=== PATIENT | male | born 1990 | race African-American/Black ===

== ENCOUNTER 2017-01-27 13:28 | Emergency (ER) | payer OTHER ==
[~2017-01-27] VITALS: Ht 182.9 cm; Wt 97.5 kg
[2017-01-27 13:44] VITALS: BP 120/73
[2017-01-27] MEDS ORDERED: ZYRT10CA PO (13:45)
[2017-01-27] MEDS ORDERED: ONDANSETRON 4MG/2ML VIAL (J2405) IV ONE (14:15)
[2017-01-27] MEDS ORDERED: NS 1,000 ML IV ONE (14:15)
[2017-01-27] MEDS ORDERED: FAMOTIDINE IV BAG 20 MG in APPROPRIATE DILUENT 1 EA IV ONE (14:15)
[2017-01-27] MEDS ORDERED: GI COCKTAIL 50ML BTL(HYOSCYAMINE/MAALOX/LIDOCAINE VISCOUS)(1:3:1) PO ONE (14:45)
[2017-01-27] MEDS ORDERED: ACETAMINOPHEN TAB 650MG DOSE (2X325MG) PO ONE (14:45)
[2017-01-27 14:59] LABS: BASO % 0.1 % (0.0-1.0); EOS # 0.1 K/mm3 (0.0-0.50); EOS % 2.2 % (0.0-3.0); LARGE UNSTAINED CELL % 0.6 % (0.0-4.0); LYMPH # 0.3 K/mm3 (1.5-6.5); LYMPH % 5.6 % (24.0-44.0); MEAN CORPUSCULAR HEMOGLOBIN 30.3 pg (27.0-33.0); MEAN CORPUSCULAR HGB CONC 32.9 g/dl (32.0-36.5); MEAN CORPUSCULAR VOLUME 92.2 fl (80.0-96.0); MONO # 0.3 K/mm3 (0.0-0.8); MONO % 5.4 % (0.0-5.0); NEUTROPHILS # 4.8 K/mm3 (1.8-7.7); NEUTROPHILS % 86.1 % (36.0-66.0); PLATELET COUNT, AUTOMATED 199 k/mm3 (150-450); RED CELL DISTRIBUTION WIDTH 11.4 % (11.5-14.5); WHITE BLOOD COUNT 5.6 K/mm3 (4.0-10.0)
[2017-01-27 15:15] LABS: ALBUMIN 3.8 GM/DL (3.2-5.2); ALBUMIN/GLOBULIN RATIO 1.31 (1.00-1.93); ALKALINE PHOSPHATASE 78 U/L (45-117); ALT/SGPT 12 U/L (12-78); ANION GAP 8 MEQ/L (8-16); AST/SGOT 19 U/L (15-37); BILIRUBIN,DIRECT 0.3 MG/DL (0.0-0.2); BILIRUBIN,TOTAL 1.5 MG/DL (0.2-1.0); BLOOD UREA NITROGEN 13 MG/DL (7-18); CALCIUM LEVEL 8.3 MG/DL (8.5-10.1); CARBON DIOXIDE LEVEL 27 MEQ/L (21-32); CHLORIDE LEVEL 108 MEQ/L (98-107); GLOMERULAR FILTRATION RATE > 60.0 (>60); GLUCOSE, FASTING 66 MG/DL (70-105); POTASSIUM SERUM 3.9 MEQ/L (3.5-5.1); SODIUM LEVEL 143 MEQ/L (136-145); TOTAL PROTEIN 6.7 GM/DL (6.4-8.2)
--- NOTE | 2017-01-27 16:42 | REP ---
PORTABLE CHEST: REASON: Chest pain. COMPARISON: None. FINDINGS: The technique utilized in obtaining the radiograph has magnified the cardiac silhouette and accentuated the interstitial markings. The superior mediastinal structures are midline. The cardiac silhouette is unremarkable in size, shape, and position. The diaphragmatic surfaces of the lungs are regular, and the costophrenic angles are clear. The pulmonary duke are clear. The imaged osseous structures are intact. IMPRESSION: There is no acute cardiopulmonary disease. Signed by Saurabh Rico DO 01/28/2017 09:24 A
[2017-01-27] MEDS ORDERED: KETOROLAC 30 MG/ML VIAL (J1885) IV ONE (16:45)
--- NOTE | 2017-01-28 08:20 | ECGEPIP ---
Stationary ECG Study [facility] - ED Test Date: 2017-01-27 Pat Name: KELVIN CUNNINGHAM Department: Room: - Gender: M Food Science Technician: JT : 1990 Requested By: OLIVE Cavanaugh Order Number: [id number] Reading MD: Raji Carter Measurements Intervals [place] Rate: 80 P: 65 CT: 156 QRS: 48 QRSD: 95 T: 49 QT: 350 QTc: 404 Interpretive Statements SINUS RHYTHM EARLY REPOLARIZATION NO PRIORS Electronically Signed On 01-28-2017 8:20:44 EDT by Raji Carter
== END 2017-01-27 17:39 | disposition home or self-care (01) ==
LOC: M ED 13:46
DX: R19.7 Diarrhea, unspecified (principal); R10.13 Epigastric pain; K21.9 Gastro-esophageal reflux disease without esophagitis; M54.9 Dorsalgia, unspecified; Z79.899 Other long term (current) drug therapy
CPT/HCPCS: 71010; 80048; 80076; 83605; 83690; 85025; 87804; 87880; 93005; 93041; 96374; 96375; 99284; J1885; J2405

== ENCOUNTER 2017-07-12 11:05 | Inpatient (IN) | payer OTHER ==
[~2017-07-12] VITALS: Ht 182.9 cm; Wt 104.3 kg
[~2017-07-12 11:05] MED LIST: ZYRT10CA PO
[2017-07-12] MEDS ORDERED: COLA100C5 PO (11:17)
[2017-07-12] MEDS ORDERED: NAPR250T4 PO (11:17)
[2017-07-12] MEDS ORDERED: OXYC1TAB23 PO (11:17)
[2017-07-12 12:00] LABS: MEAN CORPUSCULAR HEMOGLOBIN 29.4 pg (27.0-33.0); MEAN CORPUSCULAR HGB CONC 32.1 g/dl (32.0-36.5); MEAN CORPUSCULAR VOLUME 91.6 fl (80.0-96.0); RED CELL DISTRIBUTION WIDTH 11.4 % (11.5-14.5); WHITE BLOOD COUNT 5.4 K/mm3 (4.0-10.0)
[2017-07-12 12:22] LABS: METHADONE URINE NEGATIVE (NEGATIVE)
[2017-07-12 12:45] LABS: ALBUMIN 4.4 GM/DL (3.2-5.2); ALBUMIN/GLOBULIN RATIO 1.29 (1.00-1.93); ALKALINE PHOSPHATASE 103 U/L (45-117); ALT/SGPT 104 U/L (12-78); ANION GAP 8 MEQ/L (8-16); AST/SGOT 41 U/L (15-37); BILIRUBIN,DIRECT 0.2 MG/DL (0.0-0.2); BLOOD UREA NITROGEN 9 MG/DL (7-18); CALCIUM LEVEL 8.4 MG/DL (8.5-10.1); CARBON DIOXIDE LEVEL 30 MEQ/L (21-32); CHLORIDE LEVEL 105 MEQ/L (98-107); CREATININE FOR GFR 0.98 MG/DL (0.70-1.30); GLOMERULAR FILTRATION RATE > 60.0 (>60); GLUCOSE, FASTING 84 MG/DL (70-105); POTASSIUM SERUM 4.1 MEQ/L (3.5-5.1); SODIUM LEVEL 143 MEQ/L (136-145); TOTAL PROTEIN 7.8 GM/DL (6.4-8.2)
[2017-07-12] MEDS ORDERED: CETI10TA PO (17:05)
[2017-07-12 18:07] VITALS: BP 136/64
[2017-07-12] MEDS ORDERED: MAALOX 30 ML SUSP *UDC PO PRN (18:45)
[2017-07-12] MEDS ORDERED: MOM 30ML SUSPENSION UDC PO PRN (18:45)
[2017-07-12] MEDS ORDERED: hydrOXYzine 50 MG TAB PO PRN (18:45)
[2017-07-12] MEDS ORDERED: traZODone 50 MG TAB PO PRN (18:45)
[2017-07-12] MEDS: NAPROXEN 250 MG TAB PO SCH (20:36)
[2017-07-12] MEDS: CETIRIZINE (ZyrTEC) 10 MG TAB PO SCH (20:36)
[2017-07-12] MEDS: SERTRALINE HCL 50 MG TAB PO SCH (20:37)
--- NOTE | 2017-07-12 22:13 | HPE ---
DATE OF ADMISSION: 07/12/2017 Please refer to the psychiatric history and evaluation for further details on this admission. This examination and history is intended for medical issues which may need treatment, followup, or consult on this 27-year-old male. ALLERGIES: PENICILLIN. PRIMARY CARE PROVIDER: [facility]. 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 He is . His is also active duty and is currently stationed in [place]. Ethyl alcohol (EtOH): Once a month. Smokes recently one or two cigarettes a day. Recreational drug use: None. PAST MEDICAL HISTORY: Negative. PAST SURGICAL HISTORY: 1. Left knee surgery 2 weeks ago, he is currently going to physical therapy. 2. Tonsillectomy. FAMILY HISTORY: Noncontributory. LABORATORY STUDIES: WBC 5.4, hemoglobin 14.5, hematocrit 35.3, platelets 300, electrolytes normal, BUN and creatinine 9 and 0.98, calcium 8.4, AST and ALT are elevated at 41 and 104, will recheck in the morning. EtOH was 0.019. HOME MEDICATIONS: - cetirizine 10 mg by mouth nightly - Colace 100 mg by mouth three times a day - naproxen 250 mg by mouth twice a day - oxycodone/acetaminophen 5/325 one by mouth every 6 hours as needed for pain REVIEW OF SYSTEMS: Ten systems review was done. Other than knee pain, was unremarkable. OBJECTIVE: 27-year-old cooperative male in no acute distress. Height 72 inches, weight 104 kg, body mass index (BMI) 31.2. Blood pressure 130/76, pulse 66, respirations 16, temperature 98.6. Patient is alert and oriented times three. Pupils equal and reactive to light. Extraocular movements are intact. Cornea and sclerae clear. Conjunctivae is normal. No facial asymmetry. Pharynx, tongue, gums pink and moist. Tongue is midline. NECK: Supple without lymphadenopathy. No thyromegaly. No goiter. Carotids 2+ without bruit. CHEST: Clear to auscultation without wheeze or retraction. HEART: Regular. ABDOMEN: Benign. Bowel sounds positive. GENITOURINARY/RECTAL: Not done. EXTREMITIES: Show full range of motion. Left knee incision with Steri-Strips, no open areas, no redness, knee is slightly swollen, does have full flexion and extension. The rest of his extremities are without cyanosis, clubbing, or edema. Peripheral pulses equal and palpable bilaterally. SKIN: Warm and dry. IMPRESSION/PLAN: 1. Psychiatric plan per psychiatry. 2. Status post left knee surgery. Monitor for infection. Continue with physical therapy upon discharge. No other acute medical issues.
[2017-07-13 06:00] VITALS: BP 115/68
[2017-07-13 07:27] LABS: ALBUMIN/GLOBULIN RATIO 1.21 (1.00-1.93); BILIRUBIN,DIRECT 0.3 MG/DL (0.0-0.2); BILIRUBIN,TOTAL 1.2 MG/DL (0.2-1.0); TOTAL PROTEIN 7.3 GM/DL (6.4-8.2)
[2017-07-13] MEDS: DOCUSATE SODIUM 100 MG CAP PO SCH (08:43)
[2017-07-13] MEDS: NAPROXEN 250 MG TAB PO SCH ×2 (08:43→20:30)
[2017-07-13] MEDS: SERTRALINE HCL 50 MG TAB PO SCH (08:43)
--- NOTE | 2017-07-13 16:35 | MHHPEPDOC ---
[facility] History & Physical History and Physical DATE OF ADMISSION: Jul 12, 2017 at 16:24 LEGAL STATUS AT ADMISSION: 9.39 CHIEF COMPLAINT: "I made statements that my thought I was going to kill myself, but I never was going to" HISTORY OF THE PRESENT ILLNESS: Patient is a 27-year-old male, who was admitted after making statements to his that he was going to somehow harm himself. The patient indicates that he was never feeling suicidal and made the statements rashly due to a combination of anger, depression, and fatigue. Patient has been for approximately one year and his has been deployed since February 2017, he says this has put a strain on their relationship but it is something he is working on coping with. He also has an upcoming deployment that he is somewhat nervous about as he had never been previously deployed. He also reports feeling some depression due to ongoing physical limitations from a knee repair surgery that occurred 2 weeks ago, after which he has felt that his healing has not been as fast as it should have been. Finally, the patient admits to stressor of June being the anniversary of his grandfather's 6 years ago and states this time of year is always difficult for him. He states that recently he has been sitting around and stewing in his thoughts, becoming increasingly despondent due to his inability to heal faster and because his communication with his has not been the best. Patient reports that he was not actively contemplating suicide and instead made rash statements via text to his who then [place] the patient. Patient believes that he would do well with therapy to help address the issues he has been having and is interested in seeking help to deal with his grief over his grandfather's . He finds the loss of his grandfather to be particularly troublesome as his grandfather took the place of his father throughout much of his life due to his father's work schedule. Patient identifies that he lost a guide when his grandfather and has had difficulty with "progression" in several jobs since then which was why he took the job in the [employer]. 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 PSYCHIATRIC REVIEW OF SYSTEMS: Affective: depressed mood, difficulty sleeping, some loss of appetite, low self- esteem; NO suicidal thoughts, anhedonia, or difficulty concentrating Anxiety: denies symptoms of anxiety Trauma: loss of grandfather and guilt over not having been there during his wasting away from cancer; at times consumed with thoughts that he did not show his grandfather enough love because of this Psychosis: denies AVH; denies paranoia or delusional thoughts PAST PSYCHIATRIC HISTORY: Prior Psychiatric Disorder: denies. Outpatient Treatment: denies Suicidal/Self injurious: denies Psychotropic Medication History: none ALLERGIES: Please see below. 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 Economic: no concerns Supports: mother; cousins; Abuse/trauma: denies SUBSTANCE ABUSE HISTORY: denies abuse of alcohol, nicotine, or illicit drugs PAST MEDICAL/SURGICAL HISTORY: tonsillectomy; knee repair Vital Signs Date Time Temp Pulse Resp B/P (MAP) Pulse Ox O2 Delivery O2 Flow Rate FiO2 07/13/17 06:00 98.7 69 19 115/68 (84) Room Air 07/12/17 18:07 98.6 66 16 136/64 (88) 98 Room Air 07/12/17 17:02 99.0 61 16 130/76 (94) 99 Room Air MENTAL STATUS EXAMINATION: General appearance: Patient is a 27-year old male, who is dressed in [facility]; good hygiene, good eye contact, calm and cooperative Speech: fluent; normal volume and tone Thought processes: logical, linear, goal-directed Thought content: denies SI/HI; ruminations on his relationship with his grandfather Abstract reasoning and computation: intact Description of associations: intact Description of abnormal or psychotic thoughts: no evidence of internal stimuli; no paranoid or delusional thoughts elicited Judgment: good Insight: good Orientation: x3 Recent and remote memory: intact Attention span and concentration: intact Mood: "not great" Affect: depressed; blunted range, congruent to stated mood and thought content DIAGNOSES: Major Depressive Disorder 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 Given that this is his first admission he will require monitoring to see how he responds and if his story changes as he spends some time in reflection. Patient does not appear to be an active danger to himself or others but with the acute nature of his crisis and ongoing stressors he remains at elevated risk of suicide. He is interested in seeking help and has plans to attend the groups to help himself develop coping skills. At this time the patient would benefit from inpatient admission for stabilization and to watch for medication side effects. PROBLEM LIST: 1. depressed mood 2. ineffective coping skills 3. risk for suicide INITIAL TREATMENT PLAN: 1. Patient was admitted on a 9.39 2. Complete history was obtained. 3. With patients permission, family will be contacted and database will be expanded. 4. Patients medication regimen will be reviewed and changed accordingly. 5. Patient will be provided with protected environment. 6. Patient will be treated with individual, group, and milieu therapies. 7. Patient will receive supportive psych-education. 8. Discharge planning will commence immediately. 9. Outpatient follow-up treatment will be strongly recommended. 10. The initial treatment plan will focus initially on: * Depression. * Risk for suicide. * Managing bereavement ESTIMATED LENGTH OF STAY: 3-5 DAYS. TIME SPENT COUNSELING AND COORDINATING INITIAL CARE: 60 minutes. Laboratory Data 24[facility] Labs Laboratory Tests 2 07/13/17 06:46: Aspartate Amino Transf (AST/SGOT) 29, Alanine Aminotransferase (ALT/SGPT) 82H, Alkaline Phosphatase 100, Total Bilirubin 1.2H, Direct Bilirubin 0.3H, Total Protein 7.3, Albumin 4.0, Albumin/Globulin Ratio 1.21 Medications Scheduled Cetirizine HCl (Cetirizine HCl) 10 Mg Tab, 10 MG PO QHS, (Reported) Docusate Sodium (Colace) 100 Mg Cap, 100 MG PO TID, (Reported) Naproxen (Naproxen) 250 Mg Tab, 250 MG PO BID, (Reported) Scheduled PRN Oxycodone/Acetaminophen (Oxycodone/Acetaminophen 5-325 mg) 1 Tab Tab, 1 TAB PO Q6H PRN for PAIN, (Reported) Allergies Coded Allergies: Penicillins (Verified Allergy, Unknown, 07/12/17) DILAN MALHOTRA MD Jul 13, 2017 16:35
[2017-07-13 18:00] VITALS: BP 125/70
[2017-07-13] MEDS: CETIRIZINE (ZyrTEC) 10 MG TAB PO SCH (20:30)
[2017-07-14 07:13] VITALS: BP 131/71
[2017-07-14 07:43] LABS: ALBUMIN 4.2 GM/DL (3.2-5.2); ALBUMIN/GLOBULIN RATIO 1.24 (1.00-1.93); ALKALINE PHOSPHATASE 102 U/L (45-117); ALT/SGPT 71 U/L (12-78); ANION GAP 7 MEQ/L (8-16); AST/SGOT 29 U/L (15-37); BILIRUBIN,TOTAL 1.3 MG/DL (0.2-1.0); BLOOD UREA NITROGEN 14 MG/DL (7-18); CALCIUM LEVEL 9.6 MG/DL (8.5-10.1); CARBON DIOXIDE LEVEL 29 MEQ/L (21-32); CHLORIDE LEVEL 105 MEQ/L (98-107); CREATININE FOR GFR 1.05 MG/DL (0.70-1.30); GLOMERULAR FILTRATION RATE > 60.0 (>60); GLUCOSE, FASTING 92 MG/DL (70-105); SODIUM LEVEL 141 MEQ/L (136-145); TOTAL PROTEIN 7.6 GM/DL (6.4-8.2)
[2017-07-14] MEDS: DOCUSATE SODIUM 100 MG CAP PO SCH (07:59)
[2017-07-14] MEDS: SERTRALINE HCL 50 MG TAB PO SCH (07:59)
[2017-07-14] MEDS: NAPROXEN 250 MG TAB PO SCH ×2 (07:59→20:55)
--- NOTE | 2017-07-14 16:29 | MHIPNPDOC ---
[facility] Progress Note Progress Note DATE OF SERVICE: 07/14/17 HISTORY: Patient slept well overnight, reports that he feels better. Has been attending groups and talking with friends/family, this has led to the realization that the patient was isolating which he feels was contributing to his negative mood and his outburst that occurred while talking to his . He opened up more about his feelings regarding his and states that he gets jealous because he knows that other men will flirt with his , this jealousy is in spite of his statement that he trusts her implicitly. Patient also states that he is interested in speaking with Behavioral Health once he is discharged back to [facility] to help him with maintenance of coping skills. VITAL SIGNS: See below. NEW TEST RESULTS: see below CURRENT MEDICATIONS: See below. MENTAL STATUS EXAMINATION: Patient is a 27-year old male, who is dressed in [facility]; calm and cooperative with interview, good eye contact, good hygiene/grooming Speech: Is fluent; normal volume and tone Thought processes including: logical, linear, goal-directed Thought content: denies SI/HI; mild perseveration on the idea of "progression" in his career/schooling/treatment on the unit. Abstract reasoning, and computation: intact. Description of associations: intact Description of abnormal or psychotic thoughts: no evidence of internal stimuli; no paranoid or delusional thoughts elicited Judgment: good Insight: good Orientation: x3 Recent and remote memory: intact Attention span and concentration: intact Mood: "ready". Affect: earnest, full range, congruent to stated mood and thoughts DIAGNOSES: MDD vs. Adjustment Disorder with depressed mood ASSESSMENT: Patient has passed his initial crisis, is interested in developing skills to prevent him from reaching such a point in the future. Interacting well on the unit and no reports of behavioral issues. He appears to be highly motivated to improve his coping skills and return to his usual life. There are no acute safety concerns at this time and the patient would likely continue to benefit from outpatient management. MANAGEMENT PLAN: continue current medications; will discuss discharge planning options and contact patient's chain of command regarding discharge TIME SPENT: 15 minutes. Vital Signs Vital Signs Date Time Temp Pulse Resp B/P (MAP) Pulse Ox O2 Delivery O2 Flow Rate FiO2 07/14/17 07:13 98.5 66 16 131/71 (91) Room Air 07/12/17 18:07 98 Laboratory Data 24H Labs Laboratory Tests 2 07/14/17 06:56: Anion Gap 7L, Glomerular Filtration Rate > 60.0, Blood Urea Nitrogen 14#, Creatinine 1.05, Sodium Level 141, Potassium Level 4.0, Chloride Level 105, Carbon Dioxide Level 29, Calcium Level 9.6, Aspartate Amino Transf (AST/SGOT) 29 , Alanine Aminotransferase (ALT/SGPT) 71, Alkaline Phosphatase 102, Total Bilirubin 1.3H, Total Protein 7.6, Albumin 4.2, Albumin/Globulin Ratio 1.24 CBC/BMP Laboratory Tests 07/14/17 06:56 Calcium Level 9.6, Aspartate Amino Transf (AST/SGOT) 29, Alanine Aminotransferase (ALT/SGPT) 71, Alkaline Phosphatase 102, Total Bilirubin 1.3 H , Total Protein 7.6, Albumin 4.2 Current Medications Current Medications Al Hydrox/Mg Hydrox/Simethicone (Mylanta) 30 ml Q4HP PRN PO HEARTBURN/ INDIGESTION; Start 07/12/17 at 18:45; Stop 08/11/17 at 18:44 Cetirizine HCl (ZyrTEC) 10 mg QHS PO Last administered on 07/13/17 20:30; Start 07/12/17 at 21:00; Stop 08/11/17 at 20:59 Docusate Sodium (Colace) 100 mg DAILY PO Last administered on 07/14/17 07:59; Start 07/13/17 at 09:00; Stop 08/12/17 at 08:59 Home Med (Med Rec Complete!) ASDIRECTED XX ; Start 07/12/17 at 17:15; Stop at 17:15; Status DC Hydroxyzine HCl (Atarax) 50 mg Q4HP PRN PO ITCHING; Start 07/12/17 at 18:45; Stop 08/11/17 at 18:44 Magnesium Hydroxide (Milk Of Magnesia) 30 ml DAILYPRN PRN PO CONSTIPATION; Start 07/12/17 at 18:45; Stop 08/11/17 at 18:44 Naproxen (Naprosyn) 250 mg BID PO Last administered on 07/14/17 07:59; Start 07/12/17 at 21:00; Stop 08/11/17 at 20:59 Sertraline HCl (Zoloft) 50 mg DAILY PO Last administered on 07/14/17t 07:59; Start 07/12/17 at 09:00; Stop 08/11/17 at 08:59 Trazodone HCl (Desyrel) 50 mg QHSP PRN PO INSOMNIA; Start 07/12/17 at 18:45; Stop 08/11/17 at 18:44 Allergies Coded Allergies: Penicillins (Verified Allergy, Unknown, 07/12/17) DILAN MALHOTRA MD Jul 14, 2017 16:29
[2017-07-14 18:28] VITALS: BP 123/71
[2017-07-14] MEDS: CETIRIZINE (ZyrTEC) 10 MG TAB PO SCH (20:54)
[2017-07-15 06:43] VITALS: BP 128/68
[2017-07-15] MEDS: NAPROXEN 250 MG TAB PO SCH (08:08)
[2017-07-15] MEDS: DOCUSATE SODIUM 100 MG CAP PO SCH (08:08)
[2017-07-15] MEDS: SERTRALINE HCL 50 MG TAB PO SCH (08:08)
[2017-07-15] MEDS ORDERED: SERT50TA PO (10:03)
[2017-07-15] MEDS ORDERED: TRAZO50TA PO (10:03)
--- NOTE | 2017-07-15 15:52 | MHDSPDOC ---
[facility] Discharge Summary Discharge Summary DATE OF ADMISSION: Jul 12, 2017 at 16:24 DATE OF DISCHARGE: Jul 15, 2017 at 12:00 DISCHARGE DIAGNOSES: Adjustment Disorder with Depressed Mood REASON FOR ADMISSION: Patient made a suicidal statement while having an argument with his , who is deployed. CONSULTANTS INVOLVED: none TREATMENT AND PROGRESS ON THE UNIT : Patient was admitted for safety precautions from the ED and started on 50mg daily of Zoloft. He attended some groups but mostly isolated in his room with a focus on reading a book about managing emotions during deployment. Patient also talked with many people in his family and friend ekuk on the phone, coming to the realization that he needed more social interaction in his life. He agreed to continue with therapeutic follow-up in [facility]. HOSPITAL COURSE: Patient denied SI throughout his stay and was able to calmly and logically discuss stressors in his life. He demonstrated good insight into the causes behind his depressed mood. Patient was able to participate in group and reported development of coping skills as well as formulating plans for future treatment at [facility]. Patient states that he is looking forward to returning to work and becoming involved in physical therapy to assist him in returning to his usual state of health. DISCHARGE ASSESSMENT: This is a 27 year old man who developed a depressed mood secondary to physical disability and distance from his deployed . The patient has poor coping skills and appears to have tied his identity to his physicality. Patient has been able to develop some coping skills which may help him in the future, but he will likely continue to benefit from outpatient treatment focused on challenging his reality and leading him to think about alternate means of identification. There are no safety concerns at this time and the patient is deemed low-risk for suicide, he may be discharged back to [facility]. MENTAL STATUS EXAMINATION ON DISCHARGE: Patient is a 27-year old male, who is dressed in [facility] with good hygiene/grooming; he has a pleasant demeanor and is focused on discharge Speech is fluent; normal volume, tone, and rate Thought processes including: logical, linear, coherent Thought content: denies SI/HI, focused on "improving" himself Abstract reasoning, and computation: intact Description of associations: intact Description of abnormal or psychotic thoughts: denies AVH; no evidence of paranoid or delusional thoughts Judgment: good Insight: good Orientation to x3 Recent and remote memory: intact Attention span and concentration: intact Mood: "excited" Affect: bright affect; full range, congruent to stated mood MEDICATIONS ON DISCHARGE: see below PLAN/FOLLOWUP ARRANGEMENTS: will follow-up at [facility] for psychotropic management and psychotherapy The amount of time spent in the coordination of care for this patient was approximately 30 minutes. Vital Signs/I&Os Vital Signs Date Time Temp Pulse Resp B/P (MAP) Pulse Ox O2 Delivery O2 Flow Rate FiO2 07/15/17 06:43 99.5 86 18 128/68 (88) Room Air 07/12/17 18:07 98 Medications Scheduled Cetirizine HCl (Cetirizine HCl) 10 Mg Tab, 10 MG PO QHS, (Reported) Docusate Sodium (Colace) 100 Mg Cap, 100 MG PO TID, (Reported) Naproxen (Naproxen) 250 Mg Tab, 250 MG PO BID, (Reported) Sertraline Hcl (Sertraline HCl) 50 Mg Tab, 50 MG PO DAILY for Depression, #7 Scheduled PRN Oxycodone/Acetaminophen (Oxycodone/Acetaminophen 5-325 mg) 1 Tab Tab, 1 TAB PO Q6H PRN for PAIN, (Reported) Trazodone HCl (Trazodone HCl) 50 Mg Tab, 50 MG PO QHSP PRN for INSOMNIA, #7 Allergies Coded Allergies: Penicillins (Verified Allergy, Unknown, 07/12/17) DILAN MALHOTRA MD Jul 15, 2017 15:52
== END 2017-07-15 12:00 | disposition home or self-care (01) | DRG 881 ==
LOC: M ED 11:05 → M ED INP 16:24 → M PSY 18:00
PROVIDERS: ADMIT Psychiatry & Neurology Psychiatry; ATTEND Psychiatry & Neurology Psychiatry
DX: F43.21 Adjustment disorder with depressed mood (principal); Z63.31 Absence of family member due to military deployment; Z62.811 Personal history of psychological abuse in childhood; Z88.0 Allergy status to penicillin; Z79.899 Other long term (current) drug therapy; Z79.1 Long term (current) use of non-steroidal anti-inflammatories (NSAID); F17.210 Nicotine dependence, cigarettes, uncomplicated; Z79.891 Long term (current) use of opiate analgesic